=== PATIENT | female | born 1975 | race Caucasian/White ===

== ENCOUNTER → 2017-06-11 | Outpatient (CLI) | payer OTHER ==
[~2017-06-11] MED LIST: FURO20; HYDACE5; IBUP400; MYCO250
[2017-06-13 13:30] LABS: HPV Genotype 16 Detected (NOTDET); HPV Genotype 18 Not Detected (NOTDET)
[2017-06-18 06:22] LABS: HPV High Risk Other Not Detected (NOTDET)
== END ==
LOC: LAB 15:33
PROVIDERS: Obstetrics & Gynecology
DX: Z01.419 Encounter for gynecological examination (general) (routine) without abnormal findings (principal)
CPT/HCPCS: 87624; G0123

== ENCOUNTER → 2017-07-12 | Outpatient (CLI) | payer OTHER | END | disposition home or self-care (01) | LOC: LAB SHORT 08:20 → PLD 08:20 | DX: R87.810 Cervical high risk human papillomavirus (HPV) DNA test positive (principal) | CPT/HCPCS: 88305 ==

== ENCOUNTER → 2018-06-24 | Outpatient (CLI) | payer OTHER ==
[2018-06-26 15:06] LABS: HPV 16 Positive (Negative); HPV 18 Negative (Negative); HPV OTHER HR TYPES Negative (Negative)
== END | disposition home or self-care (01) ==
LOC: LAB 15:31 → LAB SHORT 15:31
PROVIDERS: Obstetrics & Gynecology
DX: Z01.419 Encounter for gynecological examination (general) (routine) without abnormal findings (principal)
CPT/HCPCS: 87624; G0123

== ENCOUNTER → 2018-08-27 | Outpatient (CLI) | payer OTHER | END | disposition home or self-care (01) | LOC: LAB SHORT 12:39 → PLD 12:39 | DX: N87.1 Moderate cervical dysplasia (principal) | CPT/HCPCS: 88305 ==

== ENCOUNTER → 2018-09-30 | Outpatient (CLI) | payer OTHER | END | disposition home or self-care (01) | LOC: PLD 07:46 → LAB SHORT 07:46 | DX: N72 Inflammatory disease of cervix uteri (principal); N87.1 Moderate cervical dysplasia | CPT/HCPCS: 88305 ==

== ENCOUNTER 2020-06-02 07:03 | Day surgery (SDC) | payer OTHER ==
[~2020-06-02] VITALS: Ht 157.5 cm; Wt 68.0 kg
[~2020-06-02 07:03] MED LIST changes: +ACET500 PO; +ELIQUIS5 MG PO; +Estrace Vagin42.5 GM PV; +FAMO40 PO; +HYDSUL200 PO; +Klor-Con 1010 MEQ PO; +LISI5 PO; +ZOLP10 PO
--- NOTE | 2020-06-02 07:58 | NUR ---
06/02/20 0758 Tyesha Miller 1 TRY RIGHT HAND BLEW 2 TRY RIGHT AC BLEW 3 TRY LWFT WRIST BLEW 4 TRY LWFT WRIST GOOD
== END 2020-06-02 11:15 | disposition home or self-care (01) ==
LOC: ORSCSDS 07:03
PROVIDERS: Internal Medicine Gastroenterology
PROC: 0DB58ZX Excision of Esophagus, Via Natural or Artificial Opening Endoscopic, Diagnostic (ICD-10-PCS; principal; 2020-06-02 08:30)
DX: K21.00 Gastro-esophageal reflux disease with esophagitis, without bleeding (principal); R13.14 Dysphagia, pharyngoesophageal phase; D68.61 Antiphospholipid syndrome; M32.9 Systemic lupus erythematosus, unspecified; I10 Essential (primary) hypertension; F17.210 Nicotine dependence, cigarettes, uncomplicated; I25.10 Atherosclerotic heart disease of native coronary artery without angina pectoris; I25.2 Old myocardial infarction; Z79.899 Other long term (current) drug therapy; Z79.01 Long term (current) use of anticoagulants
CPT/HCPCS: 88305; J0330; J0461; J2250; J2405; J2704; J7120

== ENCOUNTER → 2021-06-06 | Outpatient (CLI) | payer OTHER | LOC: LAB SHORT 08:38 | DX: M10.9 Gout, unspecified (principal) | CPT/HCPCS: 84550; 85651 ==

== ENCOUNTER 2023-09-03 06:43 | Day surgery (SDC) | payer BC ==
[~2023-09-03] VITALS: Ht 157.5 cm; Wt 60.3 kg
[2023-09-03] MEDS ORDERED: ALLO100 (06:57)
[2023-09-03] MEDS ORDERED: Lactated Ringer's 1,000 ML IV ONE ×2 (07:39→07:58)
[2023-09-03] MEDS ORDERED: propofoL 50 ML IV ONE (07:39)
[2023-09-03 09:03] VITALS: BP 112/88
== END 2023-09-03 08:55 | disposition home or self-care (01) ==
LOC: ORSCSDS 06:43
PROVIDERS: Internal Medicine Gastroenterology
PROC: 0DJD8ZZ Inspection of Lower Intestinal Tract, Via Natural or Artificial Opening Endoscopic (ICD-10-PCS; principal; 2023-09-03 08:00)
DX: Z12.11 Encounter for screening for malignant neoplasm of colon (principal); K57.30 Diverticulosis of large intestine without perforation or abscess without bleeding; K21.9 Gastro-esophageal reflux disease without esophagitis; I12.9 Hypertensive chronic kidney disease with stage 1 through stage 4 chronic kidney disease, or unspecified chronic kidney disease; N18.31 Chronic kidney disease, stage 3a; F17.210 Nicotine dependence, cigarettes, uncomplicated; Z79.01 Long term (current) use of anticoagulants; Z79.899 Other long term (current) drug therapy
CPT/HCPCS: J2704; J7120